=== PATIENT | female | born 1985 | race American Indian/Alaskan Native ===

== ENCOUNTER 2017-08-02 14:49 | Inpatient (IN) | payer OTHER ==
[~2017-08-02] VITALS: Ht 154.9 cm; Wt 61.2 kg
[2017-08-03] MEDS ORDERED: KEFLEX500 MG PO (13:11)
[2017-08-05] MEDS ORDERED: NIFEDIPINE20 MG PO (13:50)
== END 2017-08-05 14:56 | disposition home or self-care (01) | DRG 780 ==
LOC: OBS/DEL 14:49 → LDR 08-03 15:38 → OBS/DEL 08-03 15:38 → OB/GYN 08-04 14:28
PROC: 4A1HXCZ Monitoring of Products of Conception, Cardiac Rate, External Approach (ICD-10-PCS; principal; 2017-08-03)
DX: O47.03 False labor before 37 completed weeks of gestation, third trimester (principal); R10.2 Pelvic and perineal pain

== ENCOUNTER 2017-08-27 06:48 | Inpatient (IN) | payer OTHER ==
[~2017-08-27] VITALS: Ht 154.9 cm; Wt 140.0 kg
[~2017-08-27 06:48] MED LIST: KEFLEX500 MG PO; NIFEDIPINE20 MG PO
[2017-08-27] MEDS ORDERED: PRENATABS FA T1 EACH PO (08:33)
== END 2017-08-29 15:21 | disposition home or self-care (01) | DRG 775 ==
LOC: LDR 06:48 → OB/GYN 08-28 15:19
PROC: 10E0XZZ Delivery of Products of Conception, External Approach (ICD-10-PCS; principal; 2017-08-27)
PROC: 0W8NXZZ Division of Female Perineum, External Approach (ICD-10-PCS; 2017-08-27)
PROC: 3E0P7VZ Introduction of Hormone into Female Reproductive, Via Natural or Artificial Opening (ICD-10-PCS; 2017-08-27)
PROC: 3E033VJ Introduction of Other Hormone into Peripheral Vein, Percutaneous Approach (ICD-10-PCS; 2017-08-27)
PROC: 4A1HXCZ Monitoring of Products of Conception, Cardiac Rate, External Approach (ICD-10-PCS; 2017-08-27)
DX: O99.824 Streptococcus B carrier state complicating childbirth (principal); Z3A.39 39 weeks gestation of pregnancy; Z37.0 Single live birth